=== PATIENT | male | born 1990 | race Caucasian/White ===

== ENCOUNTER → 2021-07-04 | Outpatient (REF) ==
[~2021-07-04] MED LIST: ATIVAN 0.50.5 MG/TAB PO; CARAFATE 1GM1 G PO; LEVAQUIN 5500 MG/TA1 PO; NORCO 325 MG-51 TAB PO; PEPCID 20MG TAB20 MG PO; ZOFRAN 4MG T4 MG/TAB PO
== END ==
LOC: COL.CARD 15:26
DX: Z01.810 Encounter for preprocedural cardiovascular examination (principal)